=== PATIENT | male | born 1985 | race African-American/Black ===

== ENCOUNTER 2022-01-13 10:42 | Emergency (ER) | payer BC ==
[~2022-01-13] VITALS: Ht 180.3 cm; Wt 111.0 kg
[2022-01-13 10:51] VITALS: BP 125/74
[2022-01-13] MEDS ORDERED: IBUPROFEN 800MG TABLET PO ONE (11:15)
[2022-01-13 11:27] LABS: CLARITY URINE CLEAR (CLEAR); COLOR URINE YELLOW (YELLOW); KETONES URINE TRACE (NEGATIVE); LEUKOCYTE ESTERASE URINE 1+ (NEGATIVE); NITRITE URINE NEGATIVE (NEGATIVE); OCCULT BLOOD URINE NEGATIVE (NEGATIVE); PH URINE 7.5 (4.5-8.0); PROTEIN URINE NEGATIVE (NEGATIVE); UROBILINOGEN URINE 0.2 E.U./dL (0.2-1.0)
[2022-01-13] MEDS ORDERED: DOXY-326 MT (13:22)
[2022-01-13] MEDS ORDERED: IBUP-2029 MT (13:23)
[2022-01-13] MEDS ORDERED: DOXYCYCLINE HYCLATE 100MG CAPSULE PO ONE (13:30)
[2022-01-13] MEDS ORDERED: CEFTRIAXONE SODIUM 500 MG/VIAL IM ONE (13:30)
== END 2022-01-13 13:50 | disposition home or self-care (01) ==
LOC: ER 11:53
DX: N45.3 Epididymo-orchitis (principal); N39.0 Urinary tract infection, site not specified
CPT/HCPCS: 76870; 81003; 93976; 99284